=== PATIENT | female | born 1990 | race African-American/Black ===

== ENCOUNTER 2021-03-18 13:53 | Emergency (ER) | payer OTHER, SELFPAY ==
[2021-03-18 14:08] VITALS: BP 125/84; PULSE 82; RESP 16; TEMP 36.4; O2SAT 100
--- NOTE | 2021-03-18 15:24 | ED.SKABFB ---
HPI - Skin/Abscess/Foreign Bdy General Chief complaint: Skin/Abscess/Foreign Body Stated complaint: Rash Source: patient and RN notes reviewed Limitations: no limitations History of Present Illness HPI narrative: The unvaccinated patient, is a smoker/nondrinker, presents with a shorter 1-2 day history of pink, raised eruption on her trunk and face. She comments she has a sore throat and hoarseness last week which resolved. No fever, cough, sore throat now, sneezing/wheezing, CP, loss of taste/smell, S OB. Symptoms are mild, worse with scratching Related Data Allergies Allergy/AdvReac Type Severity Reaction Status Date / Time No Known Allergies Allergy Verified 03/18/21 14:47 Review of Systems Review of Systems: General/Constitutional: No weight loss,fever Eyes: N0: Redness,discharge Ears/Nose/Throat: No: Epistaxis,ear discharge Respiratory: Denies: Hemoptysis Gastrointestinal: No Vomiting, Bleeding-rectal Skin: No Lumps, eruption Neurologic: No Focal Weakness,Sz Hematologic: Denies: Petechiae/Purpura Psychiatric: No: Suicida ideationl All Other Systems: Reviewed and Negative [facility] Comments At time of signature, agree with nursing past medical, surgical, social and family history. There is no relevant family history pertinent to the presenting complaint Exam Narrative: General Appearance: Well appearing, No distress Skin: Warm, Dry scarlatiniform eruption on extremities and face EYE: PERRLA, Conjunctiva clear Ears: External ear normal Nose: Normal nose Mouth/Throat: Normal appearing, Normal lips Neck: Supple Respiratory: Airway patent, No respiratory distress Cardiovascular: RRR Abdomen: Soft, Non-tender, No massess, No organomegaly (no rebound/ surgical signs), Hyperactive bowel sounds Musculoskeletal: Full ROM Neurological: A&O x3, CN II-X intact Psychiatric: Normal mood, Normal affect Course Vital Signs Vital signs: Vital Signs Temperature 97.6 F 03/18/21 14:08 Pulse Rate 82 03/18/21 14:08 Respiratory Rate 16 03/18/21 14:08 Blood Pressure 125/84 03/18/21 14:08 Pulse Oximetry 100 03/18/21 14:08 Temperature 97.6 F 03/18/21 14:08 Pulse Rate 82 03/18/21 14:08 Respiratory Rate 16 03/18/21 14:08 Blood Pressure 125/84 03/18/21 14:08 Pulse Oximetry 100 03/18/21 14:08 MDM - Skin/Abscess/Foreign Bdy Lab Data Labs: Lab Results 03/18/21 Range/Units 14:33 POC SARS CoV-2 Ag Negative (Negative) Strep Screen Presumptive Negative *(Reference Range: Negative)* Discharge Plan Discharge Clinical Impression: Pruritic rash Patient Disposition: Home, Self-Care Condition: Stable Instructions: Dermatitis (ED) Additional Instructions: Keep photo log of area, see skin doctor if not improved Prescriptions: New prednisone 20 mg tablet 60 mg PO DAILY Qty: 15 RF: 0 fluconazole 150 mg tablet 150 mg PO WEEKLY Qty: 2 RF: 1 azithromycin 250 mg tablet See Rx Instructions .ROUTE .COMPLEX Qty: 6 RF: 0 Follow-up/Referrals: Pompa,Jamilah Juares MD [Primary Care Provider] - Stand Alone Forms: Work/School Release IP
== END 2021-03-18 15:36 | disposition home or self-care (01) ==
PROVIDERS: Emergency Provider Emergency Medicine; PCP Family Medicine
DX: R21 Rash and other nonspecific skin eruption (principal); Z20.822 Contact with and (suspected) exposure to COVID-19
CPT/HCPCS: 87081; 87426; 87880; 99213; C9803; G0463